=== PATIENT | male | born 1980 | race Caucasian/White ===

== ENCOUNTER 2021-05-05 16:50 | Emergency (ER) | payer OTHER ==
[~2021-05-05] VITALS: Ht 177.8 cm; Wt 101.8 kg
[2021-05-05 17:21] VITALS: TEMP 98.4
[2021-05-05 18:01] LABS: BASO # 0.1 (0.0-0.2); BASO % 0.4 % (0.0-2.0); EOS # 0.2 (0.0-0.7); EOS % 1.7 % (0-4.0); GRAN # 9.6 (1.4-6.5); GRAN % 76.6 % (42.2-75.2); LYMPH # 1.9 (1.2-3.4); LYMPH % 15.3 % (20.0-51.0); MEAN CELL VOLUME 87 fl (80.0-100.0); MEAN CORPUSCULAR HGB CONC 35 g/dl (33.0-37.0); MEAN PLATELET VOLUME 11.2 fl (7.4-10.4); MONO # 0.7 (0.1-0.6); MONO % 5.7 % (1.7-9.3); PLATELET COUNT 243 K/mm3 (130-400); RED BLOOD COUNT 6.02 M/mm3 (4.20-5.60); REDCELL DISTRIBUTION WIDTH-CV 12.8 % (11.5-14.5)
[2021-05-05 18:03] LABS: HEMATOCRIT 52.3 % (42.0-52.0); HEMOGLOBIN 18.2 g/dl (13.5-18.0); MEAN CORPUSCULAR HEMOGLOBIN 30 pg (27.0-31.0)
[2021-05-05 18:06] LABS: ALANINE AMINOTRANSFERASE 87 U/L (4-49); ALBUMIN 4.9 gm/dL (3.5-5.0); ALKALINE PHOSPHATASE 120 U/L (50-136); ANION GAP 10 mmol/L (7-16); AST,SGOT 45 U/L (15-37); BILIRUBIN,TOTAL 1.5 mg/dL (0.0-1.0); BLOOD UREA NITROGEN 15 mg/dL (9-20); C-REACTIVE PROTEIN 0.8 mg/dL (0.0-0.9); CALCIUM 9.5 mg/dL (8.4-10.2); CARBON DIOXIDE 26 mmol/L (22-30); CHLORIDE 104 mmol/L (98-107); CREATININE, serum 1.03 (0.66-1.25); GLUCOSE 105 mg/dL (74-106); POTASSIUM 4.5 mmol/L (3.4-5.0); SODIUM 140 mmol/L (137-145)
[2021-05-05 18:38] LABS: TROPONIN-I < 0.012 ng/mL (0.000-0.035)
[2021-05-05] MEDS ORDERED: LOPRESSOR 550 MG/TAB PO (19:28)
[2021-05-05 19:49] VITALS: BP 146/103; PULSE 109
== END 2021-05-05 19:49 | disposition home or self-care (01) ==
LOC: COL.ER 16:50
PROVIDERS: Nurse Practitioner
DX: I10 Essential (primary) hypertension (principal); F17.210 Nicotine dependence, cigarettes, uncomplicated